=== PATIENT | female | born 1985 | race Caucasian/White ===

== ENCOUNTER 2024-10-03 19:46 | Emergency (ER) | payer OTHER, SELFPAY ==
[2024-10-03 19:52] VITALS: BP 174/105
--- NOTE | 2024-10-03 21:46 | ED.GENMED ---
History of Present Illness
General
Chief Complaint: Blood Pressure Problem
Source: patient
Exam Limitations: none
Time Seen by Provider: 10/03/24 21:24
Nursing documentation reviewed up to this point in time: agreed with
History of Present Illness
History of Present Illness:
Patient is a 38-year-old female who presents the emergency department with asymptomatic hypertension. Patient states she was at the dentist today having a tooth extracted/bone graft and she was found to have elevated blood pressure in the office.
Prior to taking pain medicine at home following procedure she did take her BP which was significantly elevated at 170/100s. She did take 1 etodolac at home however did not take her prescribed Tylenol 3 as she was afraid it might further elevate her
blood pressure.
Patient has no past history of high blood pressure prompting visit to the emergency department.
She denies any headache, visual changes, dizziness, ataxia. She denies any chest pain, shortness of breath, numbness/tingling in extremities or unilateral weakness.
Patient states she is currently on amoxicillin to treat dental abscess post tooth extraction. She does report some degree of pain near the extraction site at this time. She denies any recent fever or chills.
No other concerns today.
Review of Systems
Review of Systems
Allergies reviewed?: Yes
All Other Systems: ROS reviewed and negative except as documented in HPI and ROS
Phy Exam
Physical Exam
Physical Exam:
Vitals: Hypertensive, mildly tachycardic. Otherwise vital signs stable
General: Patient is well appearing, no acute distress. Nontoxic appearing
Skin: Warm and dry, no rashes or lesions
Head: Normocephalic, atraumatic
Eyes: Sclera nonicteric. EOMs intact. Pupils equal round reactive light bilaterally. No nystagmus.
Throat: Tooth extraction site noted�no active bleeding or purulent drainage. Protecting airway
Neck: Normal ROM, no cervical spine tenderness, no meningismus
Cardiac: Regular rate and rhythm, no murmurs. 2+ palpable radial pulses bilaterally
Pulm: Normal respiratory effort, no wheezes, rales, rhonchi heard on exam
.
Abdomen: No abdominal tenderness.
Extremities: No evidence of cyanosis or edema. Strength 5/5 in bilateral upper and lower extremities. Sensation fully intact.
Neuro: AAOx3. Grossly intact.
Psychiatric: Normal affect.
Course
Orders/Labs/Results
Orders:
Orders
10/03/24 21:17
Electrocardiogram (*1) Urgent
Reason for Study: Other
Other Reason for Exam: Respiratory Distress
Cardiac Monitoring- Treatment ONCE
EKG- Treatment ONCE
O2 Therapy [RESP] Urgent
Titrate/Wean O2 to maintain O2 sat greater than (%): 93
Special Instructions: TO MAINTAIN CONTINUOUS O2 SATS >/= 93%
Pulse Ox/cont/shift [RESP] Urgent
Quantity: 1
Special Instructions: continuous pulse ox
10/03/24 21:42
Acetaminophen with Codeine [Tylenol #3] 1 tablet PO NOW STA
10/03/24 22:11
Complete Blood Count/With Diff Urgent
Comprehensive Metabolic Panel Urgent
Troponin I Urgent
10/03/24 22:38
Acetaminophen [Tylenol] 1,000 mg PO NOW STA
Abnormal Lab Results
10/03/24
22:11
MCH 31.6 H pg
(27.0-31.0)
Glucose 119 H mg/dl
(70-99)
10/03/24 22:11
10/03/24 22:11
Vital Signs
Blood pressure: 149/95
Initial and Last Documented VS:
Initial Vital Signs
Temp Pulse Resp BP Pulse Ox
97.8 F 106 19 174/105 99
10/03/24 19:52 10/03/24 19:52 10/03/24 19:52 10/03/24 19:52 10/03/24 19:52
Last Documented Vital Signs
Temp Pulse Resp BP Pulse Ox
97.8 F 92 17 157/95 95
10/03/24 19:52 10/03/24 23:28 10/03/24 23:28 10/03/24 23:28 10/03/24 23:28
MDM/Problems Addressed
Differential Diagnosis Includes:
Not limited to: Asymptomatic hypertension, hypertensive emergency, acute dehydration, elevated blood pressure secondary to pain, etc.
MDM/Problems Addressed:
38-year-old female presenting with asymptomatic hypertension. She had tooth extraction/bone graft earlier today and had elevated blood pressure at office, which remained elevated when she returned home. She has no past history of hypertension.
She did recently complete treatment for dental abscess and is now on antibiotics following dental procedure. She has no fever, chills, or other infectious symptoms. She is however in a mild amount of pain following procedure. Patient is
hypertensive and mildly tachycardic on arrival. Physical exam as above. Overall impression is likely asymptomatic hypertension likely exacerbated by pain/recent dental procedure. No indication of infectious process on exam and patient is
afebrile. ED plan check basic labs, EKG. Will treat pain and reassess
Update: Basic labs reviewed without any clinically significant abnormalities. EKG shows normal sinus rhythm without acute ischemic changes. There is no evidence of end- organ damage. Patient was given a dose of Tylenol with some improvement in
pain. Her blood pressure has decreased to 157/95 without intervention. No indication for IV antihypertensive medication at this time. She remains completely asymptomatic. Feel stable for discharge home with primary care follow-up. Advised to
monitor blood pressure at home daily and keep a log to follow-up with primary. Advised to continue pain medicine as prescribed by dentist/oral surgeon. Strict return precautions discussed including any signs of infection, etc. Patient comfortable
with discharge home
Chronic conditions affecting care:
N/A
Acute Exacerbation and/or Progression of Chronic Illness:
N/A
*Pulse Oximetry
SaO2: 99
Oxygen Mode of Delivery: Room air
Patient hypoxic: no
*EKG
Interpreted by ED Provider?: Yes
EKG Intrepretation Date: 10/03/24
Interpretation: normal
Comparison EKG: no comparison EKG present
Rate: normal
Rhythm: sinus
Dickson: normal axis
Interval: normal QT interval
QRS Pattern: normal QRS
Ischemia: no ischemia
*Mainframe Architect Interpretation
Rate: normal
Interpretation: normal
Heart Rate: 90
Rhythm: sinus
*Critical Care Note
Total Time (30-74mins, 75-104mins- exclusive of procedures): Not Applicable
ED Attending Note
-
Portions of this chart may have been created with voice recognition software.� Occasional wrong word or��sound alike� substitutions may have occurred due to the inherent limitations of voice recognition software.
Discharge Plan
Departure
Patient Disposition: Home (Routine Discharge)
Date of Disposition: 10/03/24
Time of Disposition: 23:21
Patient with high blood pressure during this ER visit?: Yes
Condition: Good
Discharge Problem:
Asymptomatic hypertension
Instructions: High Blood Pressure (DC), BLOOD PRESSURE
Prescriptions:
No Action
acetaminophen 500 mg Tablet
1,000 mg PO Q6H PRN (Reason: pain)
amoxicillin 875 mg Tablet
875 mg PO BID
etodolac 400 mg Tablet
400 mg PO BID
Referrals:
PRIVATE,PHYSICIAN [Family Provider, Internal Medicine] - Follow up in 5-7 days
Activity Restrictions/Additional Instructions:
RETURN TO THE EMERGENCY DEPARTMENT WITH ANY SEVERE HEADACHE OR NECK PAIN, VISUAL CHANGES, SEVERE BACK PAIN, CHEST PAIN, SHORTNESS OF BREATH, NUMBNESS/TINGLING OR WEAKNESS IN EXTREMITIES, OR ANY OTHER CONCERNS
- As discussed�your lab work obtained to the emergency department showed no acute abnormalities.
-Your blood pressure did come down slightly without any antihypertensive medication. The acute rise may be secondary to pain following your procedure today.
- It is important stay well-hydrated. Continue to take your pain medicine as prescribed.
- I would recommend taking your blood pressure once daily and keeping a log. Please follow-up with your primary care provider within the week for further evaluation of blood pressure
Monitor your symptoms closely and return to the emergency department with any acute worsening/new symptoms or any other concerns
Interventions
Interventions:
*Risk Screen - Suicide Last Done: 10/03/24 19:52
*General Assessment Last Done: 10/03/24 19:52
*Neglect/Abuse Screening Last Done: 10/03/24 19:52
*ED- Fall Risk Assessment Last Done: 10/03/24 21:56
*ED COVID-19 Vaccine History Last Done: 10/03/24 21:56
*Nursing Disposition Last Done: 10/03/24 23:32
ED- Neurological Assessment Last Done: 10/03/24 21:58
ED- Pulmonary Assessment Last Done: 10/03/24 21:58
Discharge Date and Time
Discharge Date/Time: 10/03/24 23:32
Print Language: ECU[place]
[2024-10-03 21:53] VITALS: BMI 31.1
[2024-10-03 21:54] VITALS: BP 170/100
[2024-10-03 22:00] VITALS: BP 149/95
[2024-10-03 22:17] LABS: Hematocrit 39.6 % (37.0-47.0); Hemoglobin 14.4 g/dL (12.0-16.0); Mean Corp Hgb Conc. 36.4 g/dL (33.0-37.0); Mean Corpuscular Volume 87.0 fL (81.0-99.0); Nucleated Red Blood Cells % 0 %; Platelet Count 333 10^3/uL (130-400); Red Cell Dist. Width 11.6 % (11.5-14.5)
[2024-10-03 22:35] LABS: ALT (SGPT) 27 U/L (0-35); AST (SGOT) 25 U/L (14-36); Albumin 4.9 g/dl (3.5-5.0); Alkaline Phosphatase 97 U/L (38-126); Blood Urea Nitrogen 8 mg/dl (7-17); Calcium 9.9 mg/dl (8.4-10.2); Carbon Dioxide 25 mmol/L (22-30); Chloride 106 mmol/L (98-107); Estimated Creatinine Clearance 121 ml/min; Glucose 119 mg/dl (70-99); Potassium 3.9 mmol/L (3.5-5.1); Sodium 139 mmol/L (135-145); Total Protein 8.2 g/dl (6.3-8.2); eGFR > 60.00
[2024-10-03 22:42] LABS: Troponin I < 0.012 ng/ml
[2024-10-03] MEDS: TYLENOL 1000 MG PO (22:45)
[2024-10-03 23:28] VITALS: BP 157/95
== END 2024-10-03 23:32 | disposition home or self-care (01) ==
LOC: EMR 19:46
PROVIDERS: EMERGENCY PHYSICIAN Student in an Organized Health Care Education/Training Program
DX: I10 Essential (primary) hypertension (principal); K04.7 Periapical abscess without sinus; Z98.890 Other specified postprocedural states
CPT/HCPCS: 99283; 94760; 80053; 84484; 85025; 93005